=== PATIENT | male | born 1950 | race Caucasian/White ===

== ENCOUNTER 2021-04-03 18:21 | Emergency (ER) | payer MEDICARE ==
[2021-04-03] MEDS ORDERED: Bacitracin Oint 1 GM U/D Packet TOP ONE (18:43)
--- NOTE | 2021-04-03 21:09 | EDM.PDOC ---
ED HPI GENERAL MEDICAL PROBLEM - General Chief Complaint: Laceration Stated Complaint: LEFT HAND CUT Time Seen by Provider: 04/03/21 18:43 Source of Information: Reports: Patient History Limitations: Reports: No Limitations - History of Present Illness INITIAL COMMENTS - FREE TEXT/NARRATIVE: Gadile is a 70-year-old male presenting to the ED for evaluation of deep lacerations to the dorsal left hand. Patient was using a mechanized wood rasp and it slipped causing him to hit the back of his hand with it causing the deep lacerations. He did apply direct pressure. His tetanus status is up-to-date as he received a tetanus last month when he had a laceration to his toe. Patient denies any distal numbness or tingling. Left Hand Pain Score (Numeric/FACES): 1 - Related Data Allergies Allergy/AdvReac Type Severity Reaction Status Date / Time No Known Allergies Allergy Verified 04/03/21 18:42 Home Meds: Home Meds Aspirin [Halfprin] 81 mg PO DAILY 04/03/21 [History] Dulaglutide [Trulicity] 1.5 mg SQ WEEKLY 04/03/21 [History] Empagliflozin [Jardiance] 10 mg PO DAILY 04/03/21 [History] Insuln Asp Prot/Insulin Aspart [NovoLOG Mix 70-30] 5 unit SQ ACBRK 04/03/21 [History] Insuln Asp Prot/Insulin Aspart [NovoLOG Mix 70-30] 10 unit SQ ACDINNER 04/03/21 [History] Metoprolol Succinate [Toprol XL] 25 mg PO DAILY 04/03/21 [History] amLODIPine [Norvasc] 5 mg PO DAILY 04/03/21 [History] atorvaSTATin [Lipitor] 40 mg PO DAILY 04/03/21 [History] metFORMIN [Glucophage] 1,000 mg PO BIDMEALS 04/03/21 [History] Past Medical History HEENT History: Reports: Impaired Vision Cardiovascular History: Reports: High Cholesterol, Hypertension, Stents Musculoskeletal History: Reports: Fracture Endocrine/Metabolic History: Reports: Diabetes, Type II - Past Surgical History Cardiovascular Surgical History: Reports: Coronary Artery Bypass, Coronary Artery Stent Social & Family History - Tobacco Use Tobacco Use Status *Q: Former Tobacco User Used Tobacco, but Quit: Yes Month/Year Tobacco Last Used: 20 years - Caffeine Use Caffeine Use: Reports: Coffee - Recreational Drug Use Recreational Drug Use: No ED ROS GENERAL - Review of Systems Review Of Systems: See Below Constitutional: Reports: No Symptoms Musculoskeletal: Reports: Hand Pain (Deep lacerations on the dorsal left hand with normal range of motion of the fingers.) Skin: Reports: Wound (Lacerations on the dorsal left hand) Neurological: Reports: No Symptoms ED EXAM, SKIN/RASH Exam: See Below Exam Limited By: No Limitations General Appearance: Alert, No Apparent Distress Extremities: Normal Range of Motion, Normal Capillary Refill, Other (2 lacerations on the dorsal left hand one measuring 4.1 cm and the other measuring 1 cm. Both going to the subcutaneous tissue. Tendon function is intact.) Neurological: Alert, Oriented, Normal Cognition, No Motor/Sensory Deficits ED SKIN PROCEDURES - Laceration/Wound Repair Left Dorsal Hand Appearance: Subcutaneous Distal NVT: Neuro & Vascular Intact Anesthetic Type: Local Local Anesthesia - Lidocaine (Xylocaine): 1% Plain Local Anesthetic Volume: 3cc Skin Prep: Chlorhexidine (Hibiciens) Exploration/Debridement/Repair: Wound Explored, In a Bloodless Field, Explored to Base, No Foreign Material Found Closed with: Sutures Lac/Wound length In cm: 5.1 Suture Size: 4-0 # of Sutures: 11 Suture Type: Nylon, Interrupted Sterile Dressing Applied: Provider Tetanus Status Addressed: Yes Complications: No Course - Vital Signs Last Recorded V/S: Last Vital Signs Temp 36.3 C 04/03/21 18:51 Pulse 93 04/03/21 18:51 Resp 18 04/03/21 18:51 BP 162/94 H 04/03/21 18:51 Pulse Ox 95 04/03/21 18:51 - Orders/Labs/Meds Meds: Medications Discontinued Medications Generic Name Dose Route Start Last Admin Trade Name Dean PRN Reason Stop Dose Admin Bacitracin 1 dose 04/03/21 18:43 04/03/21 19:21 Bacitracin Oint 1 Gm U/D Packet TOP 04/03/21 18:44 1 dose ONETIME ONE Administration Lidocaine HCl 5 ml 04/03/21 18:43 04/03/21 19:20 Lidocaine 1% 5 Ml Sdv INJECT 04/03/21 18:44 5 ml ONETIME ONE Administration Departure - Departure Time of Disposition: 21:04 Disposition: Home, Self-Care 01 Clinical Impression: Laceration of left hand Qualifiers: Encounter type: initial encounter Foreign body presence: without foreign body Qualified Code(s): S61.412A - Laceration without foreign body of left hand, initial encounter - Discharge Information Instructions: Laceration Care, Adult, Sutures, Trent, or Adhesive Wound Closure, [id number] Referrals: PCP,None [Primary Care Provider] - Care Plan Goals: Keep the wound clean and dry for the next 24 hours. After that time you can replace the dressing with just the bandage. You may want apply a light coating of bacitracin with each bandage change. I am putting you on cephalexin which is an antibiotic to treat skin infection due to the extensive destruction of the dermis. Keep the hand elevated to reduce swelling. You may notice some seepage of blood from the wound over the next 24 hours. The sutures will need to be removed in the next 10 to 14 days which can be done at the clinic or you may return to the ER. Watch for any signs of infection. Sepsis Event Note (ED) - Evaluation Sepsis Screening Result: No Definite Risk - Focused Exam Vital Signs: Vital Signs Temp Pulse Resp BP Pulse Ox 04/03/21 18:51 36.3 C 93 18 162/94 H 95 - Problem List & Annotations (1) Laceration of left hand SNOMED Code(s): 786615199 Code(s): S61.412A - LACERATION WITHOUT FOREIGN BODY OF LEFT HAND, INIT ENCNTR Status: Acute Priority: Medium Current Visit: Yes Qualifiers: Encounter type: initial encounter Foreign body presence: without foreign body Qualified Code(s): S61.412A - Laceration without foreign body of left hand, initial encounter - Problem List Review Problem List Initiated/Reviewed/Updated: Yes
== END 2021-04-03 21:19 | disposition home or self-care (01) ==
LOC: JP.ED 18:21
DX: S61.412A Laceration without foreign body of left hand, initial encounter (principal); E78.00 Pure hypercholesterolemia, unspecified; I10 Essential (primary) hypertension; E11.9 Type 2 diabetes mellitus without complications; Z87.891 Personal history of nicotine dependence; Z79.82 Long term (current) use of aspirin; Z79.4 Long term (current) use of insulin; Z79.899 Other long term (current) drug therapy; W22.8XXA Striking against or struck by other objects, initial encounter
CPT/HCPCS: 12002; 99282-25